=== PATIENT | female | born 1960 | race Caucasian/White ===

== ENCOUNTER 2018-06-27 13:20 | Observation (INO) ==
[2018-06-27] MEDS ORDERED: 0.9 % Sodium Chloride 1,000 ML IVC ONE (13:55)
[2018-06-27] MEDS ORDERED: Isovue-370 500 ML INFUS..BTL IV ONE (13:56)
[2018-06-27 14:22] LABS: Basophils # 0.1 K/mcL (0.0-0.2); Basophils % 0.6 %; Eosinophils # 0.1 K/mcL (0.0-0.6); Eosinophils % 1.3 %; Hematocrit 31.4 % (35.3-44.9); Hemoglobin 10.4 g/dL (11.5-15.4); Immature Granulocytes % 0.2 % (0-4); Lymphocytes # 1.3 K/mcL (0.6-4.6); Lymphocytes % 13.8 %; Mean Corpuscular HGB Conc 33.1 g/dL (31.6-35.5); Mean Corpuscular Volume 93.5 fL (83.0-100.0); Mean Platelet Volume 10.8 fL (9.4-12.4); Monocytes # 0.9 K/mcL (0.0-1.3); Monocytes % 9.8 %; Neutrophils # 6.8 K/mcL (1.6-8.9); Platelet Count 218 K/mcL (140-400); Red Blood Count 3.36 M/mcL (3.82-4.97); Red Cell Distribution Width 13.7 % (11.5-14.5); Segmented Neutrophils % 74.3 %
[2018-06-27 14:33] LABS: Prothrombin Time 11.4 Seconds (9.4-12.1)
[2018-06-27 14:36] LABS: Activated Partial Thrombo Time 33.4 Seconds (26.0-36.0)
[2018-06-27 14:43] LABS: Troponin I < 0.03 ng/mL (< 0.04)
[2018-06-27 14:44] LABS: Alanine Aminotransferase 11 Units/L (7-52); Albumin 3.9 g/dL (3.5-5.7); Albumin/Globulin Ratio 1.3 (1.1-2.2); Alkaline Phosphatase 96 Units/L (34-104); Aspartate Amino Transferase 13 Units/L (13-39); BUN/Creatinine Ratio 14 (6-26); Bilirubin,Direct 0.1 mg/dL (0.0-0.2); Bilirubin,Indirect 0.4 mg/dL (0.0-1.2); Bilirubin,Total 0.5 mg/dL (0.3-1.0); Blood Urea Nitrogen 19 mg/dL (8-23); Calcium 10.2 mg/dL (8.6-10.3); Carbon Dioxide 25 mEq/L (23-29); Chloride 108 mEq/L (98-107); Globulin 2.9 g/dL (2.4-3.5); Glucose 114 mg/dL (70-105); Osmolality,Calculated 283 (280-300); Phosphorous 2.5 mg/dL (2.7-4.5); Sodium 135 mEq/L (136-145); Total Protein 6.8 g/dL (6.4-8.9); eGFR For Non-African Americans 39 (> 60)
--- NOTE | 2018-06-27 15:49 | Emergency Department Note ---
Disposition Clinical Impression: Right leg weakness UTI (urinary tract infection) Qualifiers: Urinary tract infection type: site unspecified Hematuria presence: without hematuria Qualified Code(s): N39.0 - Urinary tract infection, site not specified Altered mental status Qualifiers: Altered mental status type: unspecified Qualified Code(s): R41.82 - Altered mental status, unspecified Disposition: Admitted As Inpatient Condition: Good Time of Disposition: 15:30 General Adult HPI - General Chief complaint: ED General Medical Stated complaint: Right leg pain/weakness Source: patient, family Limitations: no limitations Nursing Notes Reviewed: Yes Vital Signs Reviewed: Yes - History of Present Illness HPI Narrative: Patient with multiple complaints. Patient with past medical history of anxiety and depression presents today with for complaints of right leg pain as well as weakness and tremors. Symptoms started last night and is not entirely sure how long things have lasted. He states that she has a history of frequent UTIs and has recently been treated with some medications. She started complaining of right leg pain and weakness which was significantly worse upon awakening today. She is outside any window for TPA as there is no known specific last known well. Patient does have weakness in this area and does have some tenderness to palpation along the inguinal region so she will undergo further DVT rule out as well as CT abdomen and pelvis secondary to the pain being localized inguinal region. There is no known specific trauma. On exam the patient is somewhat confused. She has a GCS of 14 she arouses to verbal stimuli and is otherwise able to answer appropriate questions. She is not able to give any specifics in regards to anything other than her right leg causing her problems today. On exam of the right leg is weak but there is no other evidence of cellulitis or other injury. There is mild swelling to the right lower extremity so we will obtain a ultrasound to rule out DVT. Regards to the rest of her workup we will continue an altered mental status workup as well as look for signs of infection as her initial blood pressure was 98 systolic. Pain Scale: 3 - Related Data Home Medications Medication Instructions Recorded Confirmed Albuterol Sulfate [Proair Hfa] 1 puff IH Q4H PRN 06/27/18 06/27/18 Atorvastatin Calcium [Lipitor] 20 mg PO HS 06/27/18 06/27/18 Budesonide/Formoterol 160/4.5 2 puff IH BIDR 06/27/18 06/27/18 [Symbicort 160/4.5] Buspirone HCl [Buspar] 15 mg PO TID 06/27/18 06/27/18 Cholecalciferol (D-3) [Vitamin D] 2,000 unit PO DAILY 06/27/18 06/27/18 Docusate Sodium [Stool Softener] 200 mg PO HS 06/27/18 06/27/18 Escitalopram [Lexapro] 20 mg PO DAILY 06/27/18 06/27/18 Gabapentin [Neurontin] 1,200 mg PO HS 06/27/18 06/27/18 Gabapentin [Neurontin] 600 mg PO BID 06/27/18 06/27/18 HYDROcodone/Acet 7.5/325 mg [[place] 1 tab PO 2-3XD PRN 06/27/18 06/27/18 7.5-325 mg] Loratadine [Allergy Relief] 10 mg PO DAILY 06/27/18 06/27/18 Montelukast [Singulair] 10 mg PO DAILY 06/27/18 06/27/18 Multivitamin [One Daily Essential] 1 tab PO DAILY 06/27/18 06/27/18 Nitrofurantoin Macrocrystal 100 mg PO DAILY 06/27/18 06/27/18 [Nitrofurantoin] Ondansetron [Zofran] 8 mg PO DAILY PRN 06/27/18 06/27/18 Oxaprozin [Daypro] 600 mg PO BID 06/27/18 06/27/18 Oxybutynin [Ditropan] 5 mg PO HS 06/27/18 06/27/18 Propranolol [Inderal] 10 mg PO BID 06/27/18 06/27/18 Quetiapine Fumarate [Seroquel] 50 mg PO 0100,1300 06/27/18 06/27/18 Quetiapine Fumarate [Seroquel] 200 mg PO HS 06/27/18 06/27/18 hydrOXYzine HCl [Hydroxyzine HCl] 25 mg PO 0700,1200 06/27/18 06/27/18 hydrOXYzine HCl [Hydroxyzine HCl] 50 mg PO HS 06/27/18 06/27/18 lamoTRIgine [Lamictal] 100 mg PO BID 06/27/18 06/27/18 Allergies Allergy/AdvReac Type Severity Reaction Status Date / Time aspirin [ASA] Allergy Vomiting Verified 01/10/18 12:42 cephalexin [From Keflex] Allergy Vomiting Verified 01/10/18 12:42 fentanyl Allergy Vomiting Verified 01/10/18 12:42 lorazepam [From Ativan] Allergy Vomiting Verified 01/10/18 12:42 morphine Allergy Vomiting Verified 01/10/18 12:42 Review of Systems: CONSTITUTIONAL: Generalized weakness and fatigue with associated tremors of the upper extremities that are described as intermittent. No fever. HEENT: Eyes: No visual changes. Ears, Nose, Throat: No hearing loss, difficulty talking or unable to swallow. SKIN: No rash or itching. CARDIOVASCULAR: No chest pain, chest pressure or chest discomfort. No palpitations or edema. RESPIRATORY: No shortness of breath, cough or sputum. GASTROINTESTINAL: Generalized abdominal pain worse in the lower quadrants and specifically complaining of right inguinal pain that is worse with attempts to move the right leg GENITOURINARY: History of UTIs without current symptoms NEUROLOGICAL: No headache, dizziness, syncope, paralysis, ataxia, numbness or tingling in the extremities. No change in bowel or bladder control. MUSCULOSKELETAL: No muscle pain, back pain, joint pain or stiffness. Past Medical History - Past Medical History Medical history: Reports: non-contributory, other Surgical history: Reports: other Psychiatric history: Reports: anxiety, depression - Social History Smoking Status: Never smoker Smokeless Tobacco Status: No Alcohol use: Reports: none Drug use: Reports: unknown Physical Exam General: Well appearing, nontoxic, no acute distress Head: Normocephalic Atraumatic Eyes: PERRL, EOMI ENT: Airway patent, no stridor Neck: supple, full range of motion of her neck Chest: Lungs clear to auscultation bilateral Cardiac: Regular rate and rhythm, no murmurs, rubs or gallops Abdomen: soft, nontender, nondistended; no guarding, rebound, or tenderness to percussion Musculoskeletal: Mild swelling to the right lower extremity, nontender, no palpable cord Skin: No rash, normal skin tone Neuro: Patient is sleeping in the bed and is arousable to verbal stimuli. She states that she feels really sleepy and just wants to take a nap. She is mildly confused in answering some of her questions. She is complaining of right leg pain but otherwise has minimal complaints. Her neuro exam has 5 out of 5 motor upper extremity muscle strength. 3 out of 5 right lower extremity strength and 5 out of 5 left lower extremity strength. Sensation is intact throughout the upper and lower extremities. Finger to nose shows mild tremor of bilateral upper extremities. Cranial nerves II through XII are intact without focal deficit. - General Limitations: no limitations General appearance: alert, in no apparent distress Course - Reevaluation(s) Reevaluation #1: Patient underwent bilateral lower extremity DVT imaging that was negative. CT abdomen and pelvis does not show any specific cause. Her blood work is otherwise unremarkable. CT head is also unremarkable. Patient does have a UTI. She is allergic to Keflex and she is resistant on previous cultures to penicillin as well as Bactrim. The patient has remained stable while in the emergency department. She is resting but is easily arousable to verbal stimuli. At this time discussed with who is concerned about taking her home secondary to her being a fall risk. I do believe that some of her sleepiness is due to her multiple medications and including multiple psychiatric medications. Her urine culture as well as blood cultures are pending. Lactate was normal. Troponin normal. Blood work was otherwise unremarkable. Patient be admitted for further observation. - Consultations Consultation #1: Discussed with hospitalist. Patient accepted for admission Vital Signs Temperature 98.0 F 06/27/18 13:21 Pulse Rate 84 06/27/18 13:21 Respiratory Rate 16 06/27/18 13:21 Blood Pressure 108/64 06/27/18 13:21 O2 Sat by Pulse Oximetry 95 06/27/18 13:21 Temperature 101 F H 06/27/18 20:33 Pulse Rate 83 06/27/18 20:33 Respiratory Rate 14 06/27/18 20:33 Blood Pressure 88/53 06/27/18 20:33 O2 Sat by Pulse Oximetry 92 06/27/18 20:33 Oxygen Delivery Oxygen Delivery Nasal Cannula Medical Decision Making - Medical Records Medical records reviewed: Yes I reviewed the patient's medical records. - Lab Data Lab results reviewed: Yes I reviewed the patient's lab results. Result diagrams: 06/27/18 14:12 06/27/18 14:12 Lab Results 06/27/18 06/27/18 06/27/18 Range/Units 14:12 14:12 14:12 WBC 9.1 (4.3-11.1) K/mcL RBC 3.36 L (3.82-4.97) M/mcL Hgb 10.4 L (11.5-15.4) g/dL Hct 31.4 L (35.3-44.9) % MCV 93.5 (83.0-100.0) fL MCH 31.0 (28.0-33.3) pg MCHC 33.1 (31.6-35.5) g/dL RDW 13.7 (11.5-14.5) % Plt Count 218 (140-400) K/mcL MPV 10.8 (9.4-12.4) fL Immature Gran % 0.2 (0-4) % Seg Neutrophils % 74.3 % Lymphocytes % 13.8 % Monocytes % 9.8 % Eosinophils % 1.3 % Basophils % 0.6 % Neutrophils # 6.8 (1.6-8.9) K/mcL Lymphocytes # 1.3 (0.6-4.6) K/mcL Monocytes # 0.9 (0.0-1.3) K/mcL Eosinophils # 0.1 (0.0-0.6) K/mcL Basophils # 0.1 (0.0-0.2) K/mcL PT 11.4 (9.4-12.1) Seconds INR 1.0 APTT 33.4 (26.0-36.0) Seconds VBG pH (7.32-7.42) pH Units VBG pCO2 (41-51) mmHg VBG pO2 (25-50) mmHg VBG HCO3 (21-27) mEq/L Sodium 135 L (136-145) mEq/L Potassium 4.0 (3.5-5.1) mEq/L Chloride 108 H (98-107) mEq/L Carbon Dioxide 25 (23-29) mEq/L BUN 19 (8-23) mg/dL Creatinine 1.37 H (0.60-1.20) mg/dL Est GFR ( Amer) 48 L (> 60) Est GFR (Non-Af Amer) 39 L (> 60) BUN/Creatinine Ratio 14 (6-26) Glucose 114 H (70-105) mg/dL POC Glucose (70-99) mg/dL Calculated Osmolality 283 (280-300) Lactic Acid (0.5-2.2) mmol/L Calcium 10.2 (8.6-10.3) mg/dL Phosphorus 2.5 L (2.7-4.5) mg/dL Magnesium 2.0 (1.6-2.6) mg/dL Total Bilirubin 0.5 (0.3-1.0) mg/dL Direct Bilirubin 0.1 (0.0-0.2) mg/dL Indirect Bilirubin 0.4 (0.0-1.2) mg/dL AST 13 (13-39) Units/L ALT 11 (7-52) Units/L Alkaline Phosphatase 96 (34-104) Units/L Troponin I < 0.03 (< 0.04) ng/mL Serum Total Protein 6.8 (6.4-8.9) g/dL Albumin 3.9 (3.5-5.7) g/dL Globulin 2.9 (2.4-3.5) g/dL Albumin/Globulin Ratio 1.3 (1.1-2.2) Urine Color (Yellow) Urine Clarity (Clear) Urine pH (5.0-8.0) pH Units Ur Specific [place] (1.010-1.025) Urine Protein (Neg-Trace) mg/dL Urine Glucose (UA) (Normal) mg/dL Urine Ketones (Negative) mg/dL Urine Blood (Negative) Urine Nitrite (Negative) Urine Bilirubin (Negative) Urine Urobilinogen (Normal) mg/dL Ur Leukocyte Esterase (Negative) Urine Microscopic RBC (0-3) per hpf Urine Microscopic WBC (0-3) per hpf Ur Squamous Epith Cells (None-Few) per lpf Urine Bacteria (None-Few) per hpf Hyaline Casts (None-Few) per lpf Ur Culture Indicated? (NO) 06/27/18 06/27/18 06/27/18 Range/Units 14:12 14:25 17:25 WBC (4.3-11.1) K/mcL RBC (3.82-4.97) M/mcL Hgb (11.5-15.4) g/dL Hct (35.3-44.9) % MCV (83.0-100.0) fL MCH (28.0-33.3) pg MCHC (31.6-35.5) g/dL RDW (11.5-14.5) % Plt Count (140-400) K/mcL MPV (9.4-12.4) fL Immature Gran % (0-4) % Seg Neutrophils % % Lymphocytes % % Monocytes % % Eosinophils % % Basophils % % Neutrophils # (1.6-8.9) K/mcL Lymphocytes # (0.6-4.6) K/mcL Monocytes # (0.0-1.3) K/mcL Eosinophils # (0.0-0.6) K/mcL Basophils # (0.0-0.2) K/mcL PT (9.4-12.1) Seconds INR APTT (26.0-36.0) Seconds VBG pH 7.35 (7.32-7.42) pH Units VBG pCO2 43 (41-51) mmHg VBG pO2 101 H (25-50) mmHg VBG HCO3 24 (21-27) mEq/L Sodium (136-145) mEq/L Potassium (3.5-5.1) mEq/L Chloride (98-107) mEq/L Carbon Dioxide (23-29) mEq/L BUN (8-23) mg/dL Creatinine (0.60-1.20) mg/dL Est GFR ( Amer) (> 60) Est GFR (Non-Af Amer) (> 60) BUN/Creatinine Ratio (6-26) Glucose (70-105) mg/dL POC Glucose (70-99) mg/dL Calculated Osmolality (280-300) Lactic Acid 1.8 (0.5-2.2) mmol/L Calcium (8.6-10.3) mg/dL Phosphorus (2.7-4.5) mg/dL Magnesium (1.6-2.6) mg/dL Total Bilirubin (0.3-1.0) mg/dL Direct Bilirubin (0.0-0.2) mg/dL Indirect Bilirubin (0.0-1.2) mg/dL AST (13-39) Units/L ALT (7-52) Units/L Alkaline Phosphatase (34-104) Units/L Troponin I (< 0.04) ng/mL Serum Total Protein (6.4-8.9) g/dL Albumin (3.5-5.7) g/dL Globulin (2.4-3.5) g/dL Albumin/Globulin Ratio (1.1-2.2) Urine Color Yellow (Yellow) Urine Clarity Cloudy A (Clear) Urine pH 7.0 (5.0-8.0) pH Units Ur Specific [place] 1.016 (1.010-1.025) Urine Protein Trace (Neg-Trace) mg/dL Urine Glucose (UA) Normal (Normal) mg/dL Urine Ketones Negative (Negative) mg/dL Urine Blood Negative (Negative) Urine Nitrite Negative (Negative) Urine Bilirubin Negative (Negative) Urine Urobilinogen Normal (Normal) mg/dL Ur Leukocyte Esterase Moderate H (Negative) Urine Microscopic RBC 3-5 H (0-3) per hpf Urine Microscopic WBC 30-50 H (0-3) per hpf Ur Squamous Epith Cells None Seen (None-Few) per lpf Urine Bacteria Many H (None-Few) per hpf Hyaline Casts None Seen (None-Few) per lpf Ur Culture Indicated? YES A (NO) 06/27/18 Range/Units 21:39 WBC (4.3-11.1) K/mcL RBC (3.82-4.97) M/mcL Hgb (11.5-15.4) g/dL Hct (35.3-44.9) % MCV (83.0-100.0) fL MCH (28.0-33.3) pg MCHC (31.6-35.5) g/dL RDW (11.5-14.5) % Plt Count (140-400) K/mcL MPV (9.4-12.4) fL Immature Gran % (0-4) % Seg Neutrophils % % Lymphocytes % % Monocytes % % Eosinophils % % Basophils % % Neutrophils # (1.6-8.9) K/mcL Lymphocytes # (0.6-4.6) K/mcL Monocytes # (0.0-1.3) K/mcL Eosinophils # (0.0-0.6) K/mcL Basophils # (0.0-0.2) K/mcL PT (9.4-12.1) Seconds INR APTT (26.0-36.0) Seconds VBG pH (7.32-7.42) pH Units VBG pCO2 (41-51) mmHg VBG pO2 (25-50) mmHg VBG HCO3 (21-27) mEq/L Sodium (136-145) mEq/L Potassium (3.5-5.1) mEq/L Chloride (98-107) mEq/L Carbon Dioxide (23-29) mEq/L BUN (8-23) mg/dL Creatinine (0.60-1.20) mg/dL Est GFR ( Amer) (> 60) Est GFR (Non-Af Amer) (> 60) BUN/Creatinine Ratio (6-26) Glucose (70-105) mg/dL POC Glucose 116 H (70-99) mg/dL Calculated Osmolality (280-300) Lactic Acid (0.5-2.2) mmol/L Calcium (8.6-10.3) mg/dL Phosphorus (2.7-4.5) mg/dL Magnesium (1.6-2.6) mg/dL Total Bilirubin (0.3-1.0) mg/dL Direct Bilirubin (0.0-0.2) mg/dL Indirect Bilirubin (0.0-1.2) mg/dL AST (13-39) Units/L ALT (7-52) Units/L Alkaline Phosphatase (34-104) Units/L Troponin I (< 0.04) ng/mL Serum Total Protein (6.4-8.9) g/dL Albumin (3.5-5.7) g/dL Globulin (2.4-3.5) g/dL Albumin/Globulin Ratio (1.1-2.2) Urine Color (Yellow) Urine Clarity (Clear) Urine pH (5.0-8.0) pH Units Ur Specific [place] (1.010-1.025) Urine Protein (Neg-Trace) mg/dL Urine Glucose (UA) (Normal) mg/dL Urine Ketones (Negative) mg/dL Urine Blood (Negative) Urine Nitrite (Negative) Urine Bilirubin (Negative) Urine Urobilinogen (Normal) mg/dL Ur Leukocyte Esterase (Negative) Urine Microscopic RBC (0-3) per hpf Urine Microscopic WBC (0-3) per hpf Ur Squamous Epith Cells (None-Few) per lpf Urine Bacteria (None-Few) per hpf Hyaline Casts (None-Few) per lpf Ur Culture Indicated? (NO) - Radiology Data Radiology results reviewed: Yes I reviewed the patient's radiology results. - EKG Data EKG #1 EKG attestation: Yes I reviewed and interpreted this EKG. EKG results narrative: EKG shows sinus rhythm with a ventricular rate of 82. IA interval 149. QRS 91. QTC 404. Patient has some T-wave inversions throughout the precordial leads. No elevations or depressions.
[2018-06-27 17:22] LABS: Bilirubin,Urine Negative (Negative); Blood,Urine Negative (Negative); Clarity,Urine Cloudy (Clear); Color,Urine Yellow (Yellow); Glucose,Urine (UA) Normal (Normal); Ketones,Urine Negative (Negative); Leukocyte Esterase,Urine Moderate (Negative); Nitrite,Urine Negative (Negative); Protein,Urine Trace mg/dL (Neg-Trace); Specific Gravity,Urine 1.016 (1.010-1.025); Urobilinogen,Urine Normal (Normal)
[2018-06-27 17:25] LABS: Bacteria,Urine Many per hpf (None-Few); Hyaline Casts,Urine None Seen per lpf (None-Few); Squamous Epithelial Cell,Urine None Seen per lpf (None-Few); WBC,Urine 30-50 per hpf (0-3)
[2018-06-27 17:30] LABS: VBG HCO3 24 mEq/L (21-27); VBG PCO2 43 mmHg (41-51); VBG PH 7.35 pH Units (7.32-7.42); VBG PO2 101 mmHg (25-50)
[2018-06-27] MEDS ORDERED: *HR* HYDROcodone/Acet 5/325 mg TABLET PO PRN (21:06)
[2018-06-27] MEDS ORDERED: *HR* OxyCODONE Immed Rel 5 MG TABLET PO PRN (21:06)
[2018-06-27] MEDS ORDERED: Naloxone 0.4 MG/ML INJ IVP PRN (21:06)
[2018-06-27] MEDS ORDERED: 0.9 % Sodium Chloride 1,000 ML IVC SCH ×2 (21:15→23:32)
[2018-06-27] MEDS ORDERED: Ibuprofen 600 MG TABLET PO PRN (21:55)
[2018-06-27] MEDS ORDERED: 0.9 % Sodium Chloride 500 ML IVC ONE (21:55)
[2018-06-27] MEDS ORDERED: Acetaminophen 325 MG TABLET PO PRN (21:56)
--- NOTE | 2018-06-27 23:53 | Internal Med History&Physical ---
Date of Encounter: 06/27/18 Time of Encounter: 21:00 Internal Medicine - H&P: HPI Admitted From: Home Plans for Post Hospital Care: Home History of present illness: Ms. Saini is a 58 year old female. This patient has developed some confusion in the last several hours preceding her admission to the emergency department. She has changes in urine suspected of UTI. However, she does not have any urinary symptoms. Denies fever and chills. She has normal WBC count. The patient takes a lot of medications to control her low back pain and depression/anxiety. It was today morning when she woke up with severe pain in her right hip area. She is not able to raise her right leg due to the pain. This patient has had chronic low back pain for at least several years. It was a few years ago when she got her last steroid injection for the pain. They offered her stimulator. The patient had ultrasound of her right leg done in the ED. It showed normal findings. Review of systems: All 14 organ systems were reviewed by me with the patient. Positive and pertinent negative findings are listed above. The rest of organ systems is negative. Past Med Surg Social Fam HX - Past Medical History Medical history: non-contributory, other Additional medical history: Chronic back pain, DDD, Stenosis to lower back, headaches Psychiatric history: anxiety, depression - Past Surgical History Surgical History: other Additional surgical history: Hysterectomy, Left arm fracture, Laparscopic procedure, right wrist fx 04/10/15 - Social History Smoking Status: Former smoker Smokeless Tobacco Status: No Alcohol use: none Drug use: unknown Internal Medicine - H&P: Meds Albuterol Sulfate [Proair Hfa] 1 puff IH Q4H PRN 06/27/18 [History] Atorvastatin Calcium [Lipitor] 20 mg PO HS 06/27/18 [History] Budesonide/Formoterol 160/4.5 [Symbicort 160/4.5] 2 puff IH BIDR 06/27/18 [ History] Buspirone HCl [Buspar] 15 mg PO TID 06/27/18 [History] Cholecalciferol (D-3) [Vitamin D] 2,000 unit PO DAILY 06/27/18 [History] Docusate Sodium [Stool Softener] 200 mg PO HS 06/27/18 [History] Escitalopram [Lexapro] 20 mg PO DAILY 06/27/18 [History] Gabapentin [Neurontin] 1,200 mg PO HS 06/27/18 [History] Gabapentin [Neurontin] 600 mg PO BID 06/27/18 [History] HYDROcodone/Acet 7.5/325 mg [[place] 7.5-325 mg] 1 tab PO 2-3XD PRN 06/27/18 [ History] Loratadine [Allergy Relief] 10 mg PO DAILY 06/27/18 [History] Montelukast [Singulair] 10 mg PO DAILY 06/27/18 [History] Multivitamin [One Daily Essential] 1 tab PO DAILY 06/27/18 [History] Nitrofurantoin Macrocrystal [Nitrofurantoin] 100 mg PO DAILY 06/27/18 [History] Ondansetron [Zofran] 8 mg PO DAILY PRN 06/27/18 [History] Oxaprozin [Daypro] 600 mg PO BID 06/27/18 [History] Oxybutynin [Ditropan] 5 mg PO HS 06/27/18 [History] Propranolol [Inderal] 10 mg PO BID 06/27/18 [History] Quetiapine Fumarate [Seroquel] 50 mg PO 0100,1300 06/27/18 [History] Quetiapine Fumarate [Seroquel] 200 mg PO HS 06/27/18 [History] hydrOXYzine HCl [Hydroxyzine HCl] 25 mg PO 0700,1200 06/27/18 [History] hydrOXYzine HCl [Hydroxyzine HCl] 50 mg PO HS 06/27/18 [History] lamoTRIgine [Lamictal] 100 mg PO BID 06/27/18 [History] 3 Allergy/AdvReac Type Severity Reaction Status Date / Time aspirin [ASA] Allergy Vomiting Verified 01/10/18 12:42 cephalexin [From Keflex] Allergy Vomiting Verified 01/10/18 12:42 fentanyl Allergy Vomiting Verified 01/10/18 12:42 lorazepam [From Ativan] Allergy Vomiting Verified 01/10/18 12:42 morphine Allergy Vomiting Verified 01/10/18 12:42 All Systems PM: A 10-system review of systems was performed and is negative for pertinent findings except as documented above in the HPI. - Constitutional Vitals: Temp Pulse Resp BP Pulse Ox 98.8 F 72 16 98/60 95 06/27/18 23:27 06/27/18 23:27 06/27/18 23:27 06/27/18 23:46 06/27/18 23:27 - Other Additional findings: Skin: Free of rash and discoloration. Eyes: Sclera is white. There is no discharge from eyes. ENMT: Oral/pharyngeal mucosa is normal in appearance. There is no discharge from nose or ears. Respiratory: Normal breath sounds with no crackles and wheezes bilaterally. CV: Heart is regular with no gallop or murmur. GI: Abdomen is flat and soft with no palpable mass or visceromegaly. : There is no tenderness in patient's flanks bilaterally. There is mild tenderness in suprapubic area. His post voiding residual is about 500 cc. Neuro exam: It is hard for me to evaluate the strength of her right lower extremity due to severe pain in the area of right groin. She has good movements in her right foot. She has normal eye movements. She has normal movements in upper extremities. Psychiatric: He has normal affect. His thought process is appropriate to the situation. Internal Med - H&P Results - Labs CBC & Chem 7: 06/27/18 14:12 06/27/18 14:12 - Assessment and plan (1) UTI (urinary tract infection) Current Visit: Yes Status: Acute Assessment and plan: We will continue IV Cipro started in the emergency room. We will give her IV fluids as she is mildly hypotensive. We will be watching her mental status closely. Her confusion could be secondary to her medications, she was taking at home. Qualifiers: Urinary tract infection type: acute cystitis Hematuria presence: without hematuria Qualified Code(s): N30.00 - Acute cystitis without hematuria (2) Lumbar radiculitis Current Visit: Yes Status: Acute Assessment and plan: I feel that her right hip pain (in the area of right groin) he secondary to lumbar radiculitis. We will continue when necessary hydrocodone and/or oxycodone. We will obtain x-rays of her right hip. Will obtain MRI of the lumbar spine. (3) Depression with anxiety Current Visit: Yes Status: Chronic Assessment and plan: This problem does influence her sensation of pain. The medication she is taking for treatment of that problem can cause altered mental status observed recently. We may need to do adjustments to those medications. - Time Spent With Patient Total time spent is greater than 50% in coordination of care (as documented) at patient's floor/unit and/or counseling patient: Greater than 35 minutes (40 minutes)
[2018-06-27] MEDS: Budesonide/Formoterol 160/4.5 MDI IH SCH (23:57)
[2018-06-28 05:50] LABS: Basophils % 0.5 %; Eosinophils % 0.5 %; Hematocrit 27.9 % (35.3-44.9); Hemoglobin 9.4 g/dL (11.5-15.4); Immature Granulocytes % 0.3 % (0-4); Lymphocytes # 1.9 K/mcL (0.6-4.6); Mean Corpuscular HGB Conc 33.7 g/dL (31.6-35.5); Mean Corpuscular Volume 92.1 fL (83.0-100.0); Mean Platelet Volume 11.5 fL (9.4-12.4); Monocytes # 1.2 K/mcL (0.0-1.3); Monocytes % 16.8 %; Neutrophils # 4.2 K/mcL (1.6-8.9); Platelet Count 186 K/mcL (140-400); Red Blood Count 3.03 M/mcL (3.82-4.97); Red Cell Distribution Width 13.7 % (11.5-14.5); Segmented Neutrophils % 56.9 %
[2018-06-28] MEDS ORDERED: *HR* Heparin 5,000 UNIT/ML VIAL SQ SCH (06:00)
[2018-06-28 06:12] LABS: BUN/Creatinine Ratio 14 (6-26); Blood Urea Nitrogen 15 mg/dL (8-23); Calcium 9.2 mg/dL (8.6-10.3); Carbon Dioxide 23 mEq/L (23-29); Chloride 113 mEq/L (98-107); Glucose 118 mg/dL (70-105); Osmolality,Calculated 294 (280-300); Potassium 3.9 mEq/L (3.5-5.1); Sodium 141 mEq/L (136-145); eGFR For Non-African Americans 53 (> 60)
[2018-06-28] MEDS ORDERED: hydrOXYzine pamoate 25 MG CAPSULE PO SCH ×2 (07:00→21:00)
[2018-06-28] MEDS: Gabapentin 300 MG CAPSULE PO SCH ×2 (07:51→12:55)
[2018-06-28] MEDS: Budesonide/Formoterol 160/4.5 MDI IH SCH (08:02)
[2018-06-28] MEDS ORDERED: Diclofenac Sodium (24 HR) 100 MG TABLET PO SCH (09:00)
[2018-06-28] MEDS ORDERED: lamoTRIgine 100 MG TABLET PO SCH (09:00)
[2018-06-28] MEDS ORDERED: Loratadine 10 MG TABLET PO SCH ×2 (09:00→16:00)
[2018-06-28] MEDS ORDERED: Multivit/Ca/Min/Fe/FA 1 TAB TABLET PO SCH ×2 (09:00→16:00)
[2018-06-28] MEDS ORDERED: Cholecalciferol (D-3) 1,000 UNIT TABLET PO SCH ×2 (09:00→16:00)
[2018-06-28 10:44] VITALS: BP 89/47
--- NOTE | 2018-06-28 10:58 | Internal Med Progress Note ---
Hospitalist Progress Note - Encounter Date of Encounter: 06/28/18 Time of Encounter: 10:57 - Exam Vitals: Temp Pulse Resp BP Pulse Ox 98.3 F 68 14 89/47 95 06/28/18 10:43 06/28/18 10:43 06/28/18 10:43 06/28/18 10:43 06/28/18 10:43 - Time Spent with Patient Total time spent is greater than 50% in coordination of care (as documented) at patient's floor/unit and/or counseling patient: Internal Medicine: Result - Labs CBC & Chem 7: 06/28/18 05:05 06/28/18 05:05 Labs: Short CBC 06/28/18 Range/Units 05:05 WBC 7.4 (4.3-11.1) K/mcL Hgb 9.4 L (11.5-15.4) g/dL Hct 27.9 L (35.3-44.9) % Plt Count 186 (140-400) K/mcL Neutrophils # 4.2 (1.6-8.9) K/mcL BMP 06/28/18 05:05 Sodium 141 Potassium 3.9 Chloride 113 H Carbon Dioxide 23 BUN 15 Creatinine 1.06 Glucose 118 H Calcium 9.2 - ABG Interpretation ABG results: PT/INR, D-dimer PT 11.4 Seconds (9.4-12.1) 06/27/18 14:12 Consult Discharge Plan - Plan Referrals: Ephraim Fuentes MD [Primary Care Provider] -
[2018-06-28] MEDS ORDERED: HydrOXYzine SYP 10 MG/5 ML UDC PO SCH ×2 (12:00→16:00)
--- NOTE | 2018-06-28 12:21 | Discharge Summary ---
<Mckayla Nunn - Last Filed: 06/28/18 13:30> - NOTES TO OUTPATIENT PROVIDER Notes to Outpatient Provider: Recurrent UTI, now on cipro 250mg BID x 7 days Date of Encounter: 06/28/18 Time of Encounter: 11:35 - Discharge Diagnosis (1) UTI (urinary tract infection) Priority: Primary Status: Acute Qualifiers: Urinary tract infection type: acute cystitis Hematuria presence: without hematuria Qualified Code(s): N30.00 - Acute cystitis without hematuria (2) Altered mental status Priority: Secondary Status: Resolved Qualifiers: Altered mental status type: delirium Qualified Code(s): R41.0 - Disorientation, unspecified (3) Lumbar radiculitis Priority: Secondary Status: Chronic (4) Right leg weakness Priority: Secondary Status: Acute (5) Depression with anxiety Priority: Secondary Status: Chronic Hospital course: Ms. Saini is a 58 year old female with hisotry of Anxiety, depression, DDD, asthma, and recurrent UTIs who presented to the emergency department on 06/27/18 with complaints of weakness and right leg pain. The patient was oriented to person but not place or time. Initial workup including CT head, chest xray, EKG , troponin, CT abdomen. UA revealed infection and she was admitted for AMS. Patient was started on IV cipro and IVFs in the emergency department, in addition, on admission she was restarted on her home medications. She continued to complain on right leg/groin pain. Initial workup for DVT in the ED including duplex of bilateral legs was negative therefore Lumbar MRI and Right hip XR were ordered. XRay was negative and lumbar MRI revealed mild neural foraminal narrowing without evidence of stenosis or acute process. Today, 06/28/18 the patient's states she is back to her baseline mental status and the patient is oriented to person, place, and time. She denies any further urinary complaints. While blood and urine cultures remain pending the patient has significantly improved and is stable for discharge. Given previous sensitivities she will be sent home on Ciprofloxacin 250mg BID for 7 days. While she is on quietapine and there is chance of prolonged QT, the short course of antibiotics is necessary and unlikely to to cause acute interaction. She understands the possible interaction and will follow up with her primary care physician within the week. Encouraged the patient to continue oral hydration. Return precautions given including confusion, chest pain, and dysuria. The patient and agree with and understand the course of treatment plan including plan for discharge and follow up. All questions answered. Discharge discussed with: patient, family - Time Spent with Patient Total time spent providing and/or coordinating discharge services: Greater than 30 minutes - Discharge Medications Prescriptions: Ciprofloxacin HCl [Cipro] 250 mg PO BID 7 Days #14 tablet Home Medications: Albuterol Sulfate [Proair Hfa] 1 puff IH Q4H PRN 06/27/18 [History] Atorvastatin Calcium [Lipitor] 20 mg PO HS 06/27/18 [History] Budesonide/Formoterol 160/4.5 [Symbicort 160/4.5] 2 puff IH BIDR 06/27/18 [ History] Buspirone HCl [Buspar] 15 mg PO TID 06/27/18 [History] Cholecalciferol (D-3) [Vitamin D] 2,000 unit PO DAILY 06/27/18 [History] Docusate Sodium [Stool Softener] 200 mg PO HS 06/27/18 [History] Escitalopram [Lexapro] 20 mg PO DAILY 06/27/18 [History] Gabapentin [Neurontin] 1,200 mg PO HS 06/27/18 [History] Gabapentin [Neurontin] 600 mg PO BID 06/27/18 [History] HYDROcodone/Acet 7.5/325 mg [[place] 7.5-325 mg] 1 tab PO 2-3XD PRN 06/27/18 [ History] Loratadine [Allergy Relief] 10 mg PO DAILY 06/27/18 [History] Montelukast [Singulair] 10 mg PO DAILY 06/27/18 [History] Multivitamin [One Daily Essential] 1 tab PO DAILY 06/27/18 [History] Nitrofurantoin Macrocrystal [Nitrofurantoin] 100 mg PO DAILY 06/27/18 [History] Ondansetron [Zofran] 8 mg PO DAILY PRN 06/27/18 [History] Oxybutynin [Ditropan] 5 mg PO HS 06/27/18 [History] Propranolol [Inderal] 10 mg PO BID 06/27/18 [History] Quetiapine Fumarate [Seroquel] 50 mg PO 0100,1300 06/27/18 [History] Quetiapine Fumarate [Seroquel] 200 mg PO HS 06/27/18 [History] hydrOXYzine HCl [Hydroxyzine HCl] 12.5 mg PO 0700,1200 06/27/18 [History] lamoTRIgine [Lamictal] 100 mg PO BID 06/27/18 [History] Ciprofloxacin HCl [Cipro] 250 mg PO BID 7 Days #14 tablet 06/28/18 [Rx] hydrOXYzine HCl [Hydroxyzine HCl] 25 mg PO 1600,1900 06/28/18 [History] Allergies/Adverse Reactions: 3 Allergy/AdvReac Type Severity Reaction Status Date / Time aspirin [ASA] Allergy Vomiting Verified 01/10/18 12:42 cephalexin [From Keflex] Allergy Vomiting Verified 01/10/18 12:42 fentanyl Allergy Vomiting Verified 01/10/18 12:42 lorazepam [From Ativan] Allergy Vomiting Verified 01/10/18 12:42 morphine Allergy Vomiting Verified 01/10/18 12:42 Date of admission: 06/27/18 22:02 Primary care physician: Ephraim Fuentes MD Consults: 06/27/18 23:39 Consult to Nutrition [CONS] Routine Comment: Consulting Provider: NUTRITION Reason for Dietary Consult: MST Score Discharging clinician: Mckayla Nunn Anticipated date of discharge: 06/28/18 - Constitutional Vitals: Temp Pulse Resp BP Pulse Ox 98.3 F 68 14 89/47 95 06/28/18 10:43 06/28/18 10:43 06/28/18 10:43 06/28/18 10:43 06/28/18 10:43 General appearance: Present: cooperative, A&O X 3, pleasant, no acute distress, answers questions appropriately - Head Head exam: Present: atraumatic, normocephalic - Cardiovascular Cardiovascular exam: Present: RRR, +S1, +S2. Absent: diastolic murmur, gallop, rubs, systolic murmur - GI/Abdominal GI/Abdominal exam: Present: normal bowel sounds, soft, no peritoneal signs. Absent: distended, tenderness - Neurological Exam Neurological exam: Present: alert, oriented X3, no focal deficits. Absent: facial droop, speech deficit - Skin Skin exam: Present: dry, intact - Patient Status Condition: Good Functional capacity at discharge: independent ambulation Overall status at discharge: patient is back to baseline - Discharge Instructions Instructions: Urinary Tract Infection in Women (DC), Acute Delirium (DC) Follow Up With: Layla Sosa CNP [Advanced Practice Nurse] - 07/04/18 9:00 am Additional Instructions: - Please follow up with your primary care physician within the week. - Please take your ciprofloxacin 250mg, twice daily for the next 7 days. While your symptoms may resolve, it is important to finish the full course of antibiotics. - If you start to experience confusion, painful urination, chest pain, or any other symptoms worrisome to you, please return to the emergency department. - Diet and Activity Activity: increase activity as tolerated Diet: advance to your usual diet <Charity Atwood - Last Filed: 06/28/18 16:25> Date of Encounter: 06/28/18 Hospital course: Ms. Saini is a 58 year old female - Time Spent with Patient Total time spent providing and/or coordinating discharge services: Date of admission: 06/27/18 19:04 Primary care physician: Ephraim Fuentes MD Consults: 06/27/18 23:39 Consult to Nutrition [CONS] Routine Comment: Consulting Provider: NUTRITION Reason for Dietary Consult: MST Score - Constitutional Vitals: Temp Pulse Resp BP Pulse Ox 98.3 F 68 14 89/47 95 06/28/18 10:43 06/28/18 10:43 06/28/18 10:43 06/28/18 10:43 06/28/18 10:43 - Attending Attestation I have seen and examined this patient independently. I have discussed with resident physician Dr. Riddle regarding the discharge and follow-up plan. Agree with the documentation.
--- NOTE | 2018-06-28 20:36 | Electrocardiograph Report ---
[address] [place], [place] [address] Test Date: 2018-06-27 Pat Name: Tammie Saini Department: 103 Room: 3A32 Gender: F Record Tester: RENATO : 1960 Requested By: [id number] Order Number: [id number] Reading MD: Rizwana Colindres Measurements Intervals [place] Rate: 82 P: 30 SD: 149 QRS: 4 QRSD: 91 T: 48 QT: 365 QTc: 404 Interpretive Statements SINUS RHYTHM ST DEVIATION AND MODERATE T-WAVE ABNORMALITY, CONSIDER ANTEROLATERAL ISCHEMIA [- 0.1+ mV T WAVE IN V3-V6] Electronically Signed On 06-28-2018 17:12:55 EDT by Rizwana Colindres
[2018-06-28] MEDS ORDERED: Gabapentin 400 MG CAPSULE PO SCH (21:00)
== END 2018-06-28 16:23 | disposition home or self-care (01) ==
LOC: 3ANU 13:20 → EMEROO 13:20 → 3ANU 19:52
PROVIDERS: ADMIT Internal Medicine; ATTEND Internal Medicine